=== PATIENT | male | born 1945 | race Two or more races ===

== ENCOUNTER → 2024-04-20 | Day surgery (SDC) | payer MEDICARE, OTHER ==
[~2024-04-20] VITALS: Ht 193 cm; Wt 129.3 kg
[~2024-04-20] MED LIST: APIX2.5T PO; ATOR20TA PO; ATROPINE SULFATE 1MG/10ML SYR IV PRN; EZET10TA81 PO; LIDOCAINE 2% 6ML GLYDO MM ONE; LISI-648 PO; ONDANSETRON HCL 4MG/2ML INJ IV PRN; ONDANSETRON HCL 4MG/2ML INJ ONE; PHENYLEPHRINE HCL 10MG/ML 1ML IV ONE; PROPOFOL 200MG/20ML VIAL IV ONE; SOTA80TA PO; TETRACAINE/BENZOCAINE/BUTAMBEN 20 GM SPRAY MM ONE
[2024-04-20] MEDS: SODIUM CHLORIDE 0.45% 500 ML IV ONE (10:45)
== END | disposition home or self-care (01) ==
LOC: CCL 09:40
PROVIDERS: ATTEND Specialist
DX: I48.20 Chronic atrial fibrillation, unspecified (principal); I34.0 Nonrheumatic mitral (valve) insufficiency; I25.10 Atherosclerotic heart disease of native coronary artery without angina pectoris; I11.9 Hypertensive heart disease without heart failure; E78.5 Hyperlipidemia, unspecified; K21.9 Gastro-esophageal reflux disease without esophagitis; Z79.01 Long term (current) use of anticoagulants; Z79.82 Long term (current) use of aspirin; Z79.899 Other long term (current) drug therapy; Z88.8 Allergy status to other drugs, medicaments and biological substances; Z72.89 Other problems related to lifestyle; Z87.891 Personal history of nicotine dependence; Z90.89 Acquired absence of other organs; Z98.890 Other specified postprocedural states
CPT/HCPCS: 92960; 93312; 93005; J2405; J2704; A4663; A4606